=== PATIENT | male | born 1940 | race Caucasian/White ===

== ENCOUNTER 2021-06-26 17:23 | Inpatient (IN) ==
[2021-06-26] MEDS ORDERED: DEXTROSE 50% 25 GM/50 ML VIAL IV PRN ×2 (19:17→19:24)
[2021-06-26] MEDS ORDERED: GLUCAGON 1 MG VIAL IM PRN ×2 (19:17→19:24)
[2021-06-26] MEDS ORDERED: CALCIUM CARBONATE CHEW 500 MG TABLET PO PRN (19:24)
[2021-06-26] MEDS ORDERED: DOCUSATE SODIUM 100 MG CAPSULE PO PRN (19:24)
[2021-06-26] MEDS: SERTRALINE 50 MG TABLET PO SCH (21:53)
[2021-06-26] MEDS: PREGABALIN 50 MG CAPSULE PO SCH (21:53)
[2021-06-26] MEDS: rOPINIRole 0.25 MG TABLET PO SCH (21:53)
[2021-06-26] MEDS: INSULIN REGULAR 100 UNIT/ML SUBCUT SCH (22:10)
[2021-06-26] MEDS: ACETAMINOPHEN 500 MG TABLET PO PRN (23:57)
[2021-06-27 06:17] LABS: Basophils % 0.4 % (0.0-0.8); Eosinophils # 0.1 10*3/uL (0.0-0.87); Eosinophils % 0.9 % (0.00-10.9); Hematocrit 33.5 VOL% (42.0-52.0); Hemoglobin 11.2 GM/DL (14.0-18.0); Immature Granulocytes % 1.2 %; Immature Granulocytes Absolute 0.14 #; Lymphocytes # 2.6 10*3/uL (1.4-4.0); Lymphocytes % 22.5 % (21.2-54.2); Mean Corpuscular HGB Conc 33.4 GM/DL (32-36); Mean Platelet Volume 10.3 FL (9.6-12.0); Platelet Count 174 T/CUMM (130-400); Red Blood Count 3.64 MC/CUMM (3.8-5.5); White Blood Count 11.3 T/CUMM (4-12)
[2021-06-27 06:42] LABS: Atypical Lymphocytes Few; Band Neutrophils 11 % (0-10); Lymphocytes 26 % (20-55); Segmented Neutrophils 56 % (50-85); Total Cells Counted 100
[2021-06-27 06:43] LABS: Hypochromasia Slight; Microcytosis 1+; Platelet Estimate Adequate; Polychromasia Slight
[2021-06-27 06:50] LABS: Bilirubin,Direct 0.36 MG/DL (0.0-0.20); Bilirubin,Indirect 0.4 MG/DL (0.0-1.0); Bilirubin,Total 0.8 MG/DL (0.20-1.00); Total Protein 6.2 G/DL (6.4-8.2)
[2021-06-27 07:03] LABS: Calcium 8.8 MG/DL (8.5-10.1); Osmolality,Calculated 271.5 MOS/KG (273-304); Potassium 3.7 MMOL/L (3.5-5.1); Risk Ratio 6.4; Thyroid Stimulating Hormone 0.998 uIU/ml (0.358-3.74)
[2021-06-27] MEDS: INSULIN REGULAR 100 UNIT/ML SUBCUT SCH ×4 (07:47→21:40)
[2021-06-27] MEDS ORDERED: ENOXAPARIN 40 MG/0.4 ML SYRINGE SUBCUT SCH (08:00)
[2021-06-27] MEDS ORDERED: lisinopriL 5 MG TABLET PO SCH (09:00)
[2021-06-27] MEDS: ACETAMINOPHEN 500 MG TABLET PO PRN ×2 (10:12→21:39)
[2021-06-27] MEDS: LACTATED RINGERS 1,000 ML IV SCH ×3 (10:13→21:49)
[2021-06-27] MEDS: rOPINIRole 0.25 MG TABLET PO SCH ×2 (10:13→21:39)
[2021-06-27] MEDS: CHOLECALCIFEROL 1,000 UNIT TABLET PO SCH (10:13)
[2021-06-27] MEDS: PREGABALIN 50 MG CAPSULE PO SCH ×2 (10:13→21:40)
[2021-06-27] MEDS: ASPIRIN EC 325 MG TABLET PO SCH (10:13)
[2021-06-27] MEDS: cefTRIAXone 1,000 MG in SODIUM CHLORIDE 0.9% 100 ML IV SCH (10:14)
[2021-06-27] MEDS: ZINC GLUCONATE 50 MG TABLET PO SCH (10:14)
[2021-06-27] MEDS: AZITHROMYCIN INJ 500 MG in SODIUM CHLORIDE 0.9% 250 ML IV SCH (12:42)
[2021-06-27 13:31] LABS: Amorphous Crystals,Urine Moderate /HPF (Few); Bacteria,Urine Moderate /HPF (Few); Bilirubin,Urine Negative (Negative); Blood, Urine Moderate mg/dL (Negative); Glucose,Urine (UA) Negative (Negative); Ketones,Urine Negative (Negative); Nitrite,Urine Negative (Negative); Protein,Urine 30 MG/DL; Urine Appearance CLOUDY (Clear); Urine Color Amber (Yellow); Urine Specific Gravity 1.019 (1.001-1.035)
[2021-06-27] MEDS: ALBUTEROL/IPRATROPIUM 3 ML NEB RESP TX SCH ×2 (13:34→20:27)
[2021-06-27] MEDS: ONDANSETRON 4 MG/2 ML VIAL IV PRN (17:40)
[2021-06-27] MEDS: SERTRALINE 50 MG TABLET PO SCH (21:39)
[2021-06-27] MEDS: traZODone 50 MG TABLET PO PRN (21:40)
[2021-06-28] MEDS: ONDANSETRON 4 MG/2 ML VIAL IV PRN (00:34)
[2021-06-28] MEDS: ALBUTEROL/IPRATROPIUM 3 ML NEB RESP TX SCH ×4 (00:51→19:30)
[2021-06-28 05:21] LABS: Basophils % 0.3 % (0.0-0.8); Eosinophils % 0.1 % (0.00-10.9); Hematocrit 29.9 VOL% (42.0-52.0); Hemoglobin 9.8 GM/DL (14.0-18.0); Immature Granulocytes % 0.5 %; Immature Granulocytes Absolute 0.05 #; Lymphocytes # 1.9 10*3/uL (1.4-4.0); Mean Corpuscular HGB Conc 32.8 GM/DL (32-36); Mean Platelet Volume 10.5 FL (9.6-12.0); Monocytes % 6.1 % (1.7-12.7); Platelet Count 174 T/CUMM (130-400); Red Blood Count 3.25 MC/CUMM (3.8-5.5); Red Cell Distribution Width 14.1 % (9.3-17.3); White Blood Count 9.7 T/CUMM (4-12)
[2021-06-28 05:47] LABS: Eosinophils 2 % (0-10); Hypochromasia 1+; Lymphocytes 17 % (20-55); Microcytosis 1+; Platelet Estimate Adequate; Segmented Neutrophils 78 % (50-85); Total Cells Counted 100
[2021-06-28 05:49] LABS: Calcium 8.4 MG/DL (8.5-10.1); Osmolality,Calculated 277.2 MOS/KG (273-304); Potassium 3.6 MMOL/L (3.5-5.1)
[2021-06-28 05:51] LABS: Albumin 2.6 G/DL (3.4-5.0); Bilirubin,Total 0.9 MG/DL (0.20-1.00); Calcium 8.4 MG/DL (8.5-10.1); Osmolality,Calculated 283.7 MOS/KG (273-304); Potassium 3.5 MMOL/L (3.5-5.1); Total Protein 6.4 G/DL (6.4-8.2)
[2021-06-28] MEDS: LACTATED RINGERS 1,000 ML IV SCH ×2 (06:05→17:03)
[2021-06-28] MEDS: PREGABALIN 50 MG CAPSULE PO SCH ×2 (09:02→20:35)
[2021-06-28] MEDS: rOPINIRole 0.25 MG TABLET PO SCH ×2 (09:02→20:36)
[2021-06-28] MEDS: cefTRIAXone 1,000 MG in SODIUM CHLORIDE 0.9% 100 ML IV SCH (09:02)
[2021-06-28] MEDS: ZINC GLUCONATE 50 MG TABLET PO SCH (09:02)
[2021-06-28] MEDS: CHOLECALCIFEROL 1,000 UNIT TABLET PO SCH (09:02)
[2021-06-28] MEDS: ASPIRIN EC 325 MG TABLET PO SCH (09:02)
[2021-06-28] MEDS: INSULIN REGULAR 100 UNIT/ML SUBCUT SCH ×4 (09:02→22:12)
[2021-06-28] MEDS: AZITHROMYCIN INJ 500 MG in SODIUM CHLORIDE 0.9% 250 ML IV SCH (11:00)
[2021-06-28 13:00] LABS: Hepatitis B Core IgM Quant 0.11 Index; Hepatitis B Surface Ag Quant < 0.10 Index; Hepatitis B Surface Ag Result Non-Reactive (NonReactive); Hepatitis C Virus Ab Quant 0.07 Index; Hepatitis C Virus Ab Result Non-Reactive (NonReactive)
[2021-06-28 15:35] LABS: Bilirubin,Urine Negative (Negative); Blood, Urine Small mg/dL (Negative); Glucose,Urine (UA) 50 mg/dL (Negative); Ketones,Urine Negative (Negative); Mucus,Urine Occasional /LPF (Occasional); Nitrite,Urine Negative (Negative); Protein,Urine 30 MG/DL; RBC,Urine 3 /HPF (0-4); Squamous Epithelial Cell,Urine Occasional /HPF (0-10); Urine Appearance CLEAR (Clear); Urine Color Yellow (Yellow); Urine Specific Gravity 1.018 (1.001-1.035)
[2021-06-28] MEDS: ACETAMINOPHEN 500 MG TABLET PO PRN (20:35)
[2021-06-28] MEDS: SERTRALINE 50 MG TABLET PO SCH (20:36)
[2021-06-29] MEDS: ALBUTEROL/IPRATROPIUM 3 ML NEB RESP TX SCH ×4 (00:48→19:25)
[2021-06-29] MEDS: LACTATED RINGERS 1,000 ML IV SCH ×3 (00:53→21:50)
[2021-06-29 06:03] LABS: Basophils % 0.4 % (0.0-0.8); Eosinophils # 0.2 10*3/uL (0.0-0.87); Eosinophils % 2.1 % (0.00-10.9); Hematocrit 29.9 VOL% (42.0-52.0); Hemoglobin 9.5 GM/DL (14.0-18.0); Immature Granulocytes % 0.4 %; Immature Granulocytes Absolute 0.03 #; Lymphocytes # 1.9 10*3/uL (1.4-4.0); Lymphocytes % 24.5 % (21.2-54.2); Mean Corpuscular HGB Conc 31.8 GM/DL (32-36); Mean Platelet Volume 10.5 FL (9.6-12.0); Monocytes % 7.2 % (1.7-12.7); Neutrophils % 65.4 % (38.7-73.9); Platelet Count 191 T/CUMM (130-400); Red Blood Count 3.18 MC/CUMM (3.8-5.5); Red Cell Distribution Width 14.1 % (9.3-17.3); White Blood Count 7.6 T/CUMM (4-12)
[2021-06-29 06:33] LABS: Albumin 2.5 G/DL (3.4-5.0); Bilirubin,Total 0.6 MG/DL (0.20-1.00); Calcium 8.1 MG/DL (8.5-10.1)
[2021-06-29 06:42] LABS: Hypochromasia 1+; Microcytosis 1+; Platelet Estimate Adequate
[2021-06-29 06:54] LABS: Osmolality,Calculated 280.8 MOS/KG (273-304); Potassium 3.7 MMOL/L (3.5-5.1)
[2021-06-29] MEDS: ASPIRIN EC 325 MG TABLET PO SCH (08:23)
[2021-06-29] MEDS: CHOLECALCIFEROL 1,000 UNIT TABLET PO SCH (08:23)
[2021-06-29] MEDS: rOPINIRole 0.25 MG TABLET PO SCH ×2 (08:23→21:02)
[2021-06-29] MEDS: PREGABALIN 50 MG CAPSULE PO SCH ×2 (08:23→21:03)
[2021-06-29] MEDS: INSULIN REGULAR 100 UNIT/ML SUBCUT SCH ×4 (08:24→21:49)
[2021-06-29] MEDS: ZINC GLUCONATE 50 MG TABLET PO SCH (08:24)
[2021-06-29] MEDS: cefTRIAXone 1,000 MG in SODIUM CHLORIDE 0.9% 100 ML IV SCH (08:24)
[2021-06-29] MEDS: AZITHROMYCIN INJ 500 MG in SODIUM CHLORIDE 0.9% 250 ML IV SCH (10:44)
[2021-06-29] MEDS ORDERED: GLUCAGON 1 MG VIAL IM PRN (15:16)
[2021-06-29] MEDS ORDERED: DEXTROSE 50% 25 GM/50 ML VIAL IV PRN (15:16)
[2021-06-29] MEDS: ACETAMINOPHEN 500 MG TABLET PO PRN (21:02)
[2021-06-29] MEDS: OMEPRAZOLE ODT 20 MG TABLET PO SCH (21:03)
[2021-06-29] MEDS: SERTRALINE 50 MG TABLET PO SCH (21:03)
[2021-06-30] MEDS: ALBUTEROL/IPRATROPIUM 3 ML NEB RESP TX SCH ×3 (00:25→13:50)
[2021-06-30 05:26] LABS: Basophils % 0.5 % (0.0-0.8); Eosinophils # 0.2 10*3/uL (0.0-0.87); Eosinophils % 4.1 % (0.00-10.9); Hematocrit 28.6 VOL% (42.0-52.0); Hemoglobin 9.3 GM/DL (14.0-18.0); Immature Granulocytes % 0.5 %; Immature Granulocytes Absolute 0.03 #; Lymphocytes # 1.7 10*3/uL (1.4-4.0); Mean Corpuscular HGB Conc 32.5 GM/DL (32-36); Mean Platelet Volume 10.3 FL (9.6-12.0); Monocytes % 7.6 % (1.7-12.7); Neutrophils % 57.3 % (38.7-73.9); Platelet Count 196 T/CUMM (130-400); Red Blood Count 3.11 MC/CUMM (3.8-5.5); Red Cell Distribution Width 14.1 % (9.3-17.3); White Blood Count 5.6 T/CUMM (4-12)
[2021-06-30 05:58] LABS: Calcium 8.3 MG/DL (8.5-10.1); Osmolality,Calculated 286.3 MOS/KG (273-304); Potassium 3.5 MMOL/L (3.5-5.1)
[2021-06-30 05:59] LABS: Albumin 2.3 G/DL (3.4-5.0); Bilirubin,Total 0.6 MG/DL (0.20-1.00); Calcium 8.2 MG/DL (8.5-10.1); Osmolality,Calculated 284.4 MOS/KG (273-304); Potassium 3.4 MMOL/L (3.5-5.1)
[2021-06-30 06:05] LABS: Band Neutrophils 1 % (0-10); Eosinophils 2 % (0-10); Lymphocytes 27 % (20-55); Segmented Neutrophils 63 % (50-85); Total Cells Counted 100
[2021-06-30 06:06] LABS: Platelet Estimate Normal
[2021-06-30] MEDS ORDERED: ACETAMINOPHEN 325 MG TABLET PO PRN (07:43)
[2021-06-30] MEDS: LACTATED RINGERS 1,000 ML IV SCH ×2 (07:48→18:17)
[2021-06-30] MEDS: PREGABALIN 50 MG CAPSULE PO SCH ×2 (08:46→21:38)
[2021-06-30] MEDS: ZINC GLUCONATE 50 MG TABLET PO SCH (08:46)
[2021-06-30] MEDS: cefTRIAXone 1,000 MG in SODIUM CHLORIDE 0.9% 100 ML IV SCH (08:46)
[2021-06-30] MEDS: CHOLECALCIFEROL 1,000 UNIT TABLET PO SCH (08:47)
[2021-06-30] MEDS: rOPINIRole 0.25 MG TABLET PO SCH ×2 (08:47→21:38)
[2021-06-30] MEDS: ASPIRIN EC 325 MG TABLET PO SCH (08:47)
[2021-06-30] MEDS: INSULIN REGULAR 100 UNIT/ML SUBCUT SCH ×4 (08:49→21:56)
[2021-06-30] MEDS: traZODone 50 MG TABLET PO PRN (21:38)
[2021-06-30] MEDS: SERTRALINE 50 MG TABLET PO SCH (21:38)
[2021-06-30] MEDS: OMEPRAZOLE ODT 20 MG TABLET PO SCH (21:42)
[2021-07-01] MEDS: ALBUTEROL/IPRATROPIUM 3 ML NEB RESP TX SCH ×5 (00:37→19:15)
[2021-07-01] MEDS: LACTATED RINGERS 1,000 ML IV SCH ×3 (05:07→14:55)
[2021-07-01 05:40] LABS: Basophils % 0.6 % (0.0-0.8); Eosinophils # 0.3 10*3/uL (0.0-0.87); Eosinophils % 4.2 % (0.00-10.9); Hematocrit 29.3 VOL% (42.0-52.0); Hemoglobin 9.7 GM/DL (14.0-18.0); Immature Granulocytes % 0.7 %; Immature Granulocytes Absolute 0.05 #; Lymphocytes % 28.9 % (21.2-54.2); Mean Corpuscular HGB Conc 33.1 GM/DL (32-36); Mean Corpuscular Volume 91.8 FL (87-102); Mean Platelet Volume 10.5 FL (9.6-12.0); Monocytes % 5.8 % (1.7-12.7); Neutrophils % 59.8 % (38.7-73.9); Platelet Count 252 T/CUMM (130-400); Red Blood Count 3.19 MC/CUMM (3.8-5.5); Red Cell Distribution Width 13.8 % (9.3-17.3); White Blood Count 6.9 T/CUMM (4-12)
[2021-07-01 06:04] LABS: Calcium 8.5 MG/DL (8.5-10.1); Osmolality,Calculated 282.4 MOS/KG (273-304); Potassium 3.4 MMOL/L (3.5-5.1)
[2021-07-01] MEDS ORDERED: POTASSIUM CHLORIDE 20 MEQ TABLET PO ONE (08:00)
[2021-07-01 08:12] LABS: Albumin 2.5 G/DL (3.4-5.0); Bilirubin,Direct 0.16 MG/DL (0.0-0.20); Bilirubin,Indirect 0.3 MG/DL (0.0-1.0); Bilirubin,Total 0.5 MG/DL (0.20-1.00); Total Protein 6.3 G/DL (6.4-8.2)
[2021-07-01] MEDS: ASPIRIN EC 325 MG TABLET PO SCH (08:52)
[2021-07-01] MEDS: PREGABALIN 50 MG CAPSULE PO SCH ×2 (08:52→21:20)
[2021-07-01] MEDS: ZINC GLUCONATE 50 MG TABLET PO SCH (08:52)
[2021-07-01] MEDS: CHOLECALCIFEROL 1,000 UNIT TABLET PO SCH (08:52)
[2021-07-01] MEDS: rOPINIRole 0.25 MG TABLET PO SCH ×2 (08:52→21:20)
[2021-07-01] MEDS: INSULIN REGULAR 100 UNIT/ML SUBCUT SCH ×4 (08:54→21:46)
[2021-07-01] MEDS: LEVOFLOXACIN INJ 750 MG/150 ML PREMIX IV SCH (08:55)
[2021-07-01] MEDS ORDERED: BISACODYL 5 MG TABLET PO ONE (09:32)
[2021-07-01] MEDS: POLYETHYLENE GLYCOL POWDER 17 GM PACK PO SCH (10:06)
[2021-07-01] MEDS: OMEPRAZOLE ODT 20 MG TABLET PO SCH (21:20)
[2021-07-01] MEDS: SERTRALINE 50 MG TABLET PO SCH (21:20)
[2021-07-01] MEDS: traZODone 50 MG TABLET PO PRN (21:20)
[2021-07-02] MEDS: ALBUTEROL/IPRATROPIUM 3 ML NEB RESP TX SCH ×3 (00:35→12:56)
[2021-07-02] MEDS: LACTATED RINGERS 1,000 ML IV SCH (01:00)
[2021-07-02 06:19] LABS: Basophils % 0.5 % (0.0-0.8); Eosinophils # 0.3 10*3/uL (0.0-0.87); Eosinophils % 4.9 % (0.00-10.9); Hematocrit 28.1 VOL% (42.0-52.0); Hemoglobin 8.9 GM/DL (14.0-18.0); Immature Granulocytes % 0.8 %; Immature Granulocytes Absolute 0.05 #; Lymphocytes # 1.8 10*3/uL (1.4-4.0); Lymphocytes % 27.8 % (21.2-54.2); Mean Corpuscular HGB Conc 31.7 GM/DL (32-36); Mean Corpuscular Volume 92.7 FL (87-102); Mean Platelet Volume 10.4 FL (9.6-12.0); Monocytes % 4.8 % (1.7-12.7); Neutrophils % 61.2 % (38.7-73.9); Platelet Count 263 T/CUMM (130-400); Red Blood Count 3.03 MC/CUMM (3.8-5.5); White Blood Count 6.5 T/CUMM (4-12)
[2021-07-02 06:44] LABS: Albumin 2.4 G/DL (3.4-5.0); Bilirubin,Total 0.4 MG/DL (0.20-1.00); Calcium 8.4 MG/DL (8.5-10.1); Osmolality,Calculated 285.1 MOS/KG (273-304); Potassium 3.4 MMOL/L (3.5-5.1); Total Protein 5.9 G/DL (6.4-8.2)
[2021-07-02 06:45] LABS: Eosinophils 7 % (0-10); Hypochromasia 1+; Lymphocytes 21 % (20-55); Microcytosis 1+; Platelet Estimate Adequate; Segmented Neutrophils 62 % (50-85); Total Cells Counted 100
[2021-07-02] MEDS ORDERED: POTASSIUM CHLORIDE 20 MEQ TABLET PO ONE (07:45)
[2021-07-02] MEDS ORDERED: ENOXAPARIN 40 MG/0.4 ML SYRINGE SUBCUT SCH (09:00)
[2021-07-02] MEDS: ASPIRIN EC 325 MG TABLET PO SCH (09:02)
[2021-07-02] MEDS: ZINC GLUCONATE 50 MG TABLET PO SCH (09:02)
[2021-07-02] MEDS: PREGABALIN 50 MG CAPSULE PO SCH (09:02)
[2021-07-02] MEDS: rOPINIRole 0.25 MG TABLET PO SCH (09:02)
[2021-07-02] MEDS: CHOLECALCIFEROL 1,000 UNIT TABLET PO SCH (09:02)
[2021-07-02] MEDS: LEVOFLOXACIN INJ 750 MG/150 ML PREMIX IV SCH (09:03)
[2021-07-02] MEDS: INSULIN REGULAR 100 UNIT/ML SUBCUT SCH ×2 (09:03→11:30)
[2021-07-02] MEDS: POLYETHYLENE GLYCOL POWDER 17 GM PACK PO SCH (09:12)
[2021-07-02 16:18] VITALS: BP 152/56
[2021-07-02] MEDS ORDERED: DOCUSATE SODIUM 100 MG CAPSULE PO SCH (21:00)
[2021-07-02 23:36] LABS: IgG Immunoblot Negative (Negative); IgM Immunoblot Negative (Negative)
== END 2021-07-02 16:50 | disposition home or self-care (01) | DRG 194 ==
LOC: N.3E 17:41 → SUATTDRO 17:41 → INTOOBSV 17:41
PROVIDERS: ADMIT Internal Medicine; ATTEND Internal Medicine